=== PATIENT | male | born 1970 | race Hispanic/Latino ===

== ENCOUNTER 2017-10-20 19:25 | Emergency (ER) | payer BC ==
[2017-10-20 19:33] VITALS: BMI 34.7
[2017-10-20 19:47] LABS: HEMOGLOBIN 14.5 g/dL (14.0-18.0); MEAN CELL VOLUME 87.8 fl (80.0-105.0); MEAN CORPUSCULAR HEMOGLOBIN 29.4 pg (25.0-35.0); MEAN CORPUSCULAR HGB CONC 33.5 g/dl (31.0-37.0); MEAN PLATELET VOLUME 9.6 fl (7.0-11.0); RBC 4.93 10^6/uL (3.5-6.1); RED CELL DISTRIBUTION WIDTH 13.6 % (11.5-14.5); WHITE BLOOD COUNT 17.4 10^3/ul (4.5-11.0)
[2017-10-20 20:06] VITALS: RESP 18; TEMP 98.2; O2SAT 99
--- NOTE | 2017-10-20 20:06 | CT ---
EXAM: CT Head Without Intravenous Contrast CLINICAL HISTORY: 47 years old, male; Signs and symptoms; Dizziness; Additional info: Headache/syncope TECHNIQUE: Axial computed tomography images of the head/brain without intravenous contrast. All CT scans at this facility use one or more dose reduction techniques, viz.: automated exposure control; ma/kV adjustment per patient size (including targeted exams where dose is matched to indication; i.e. head); or iterative reconstruction technique. COMPARISON: No relevant prior studies available. FINDINGS: Brain: Extensive subarachnoid hemorrhage. Hemorrhage is visualized along sulci, along sylvian fissure and basal CSF cisterns. Due to extensive hemorrhage hemorrhage in region of [place], arterial imaging recommended to exclude aneurysm. No significant white matter disease. No edema. Ventricles: No hydrocephalus. Bones: Skull is intact. Soft tissues: Right frontal scalp hematoma. Sinuses: No acute sinusitis. Mastoid air cells: No mastoid effusion. IMPRESSION: Extensive subarachnoid hemorrhage. Hemorrhage is visualized along sulci, along sylvian fissure and basal CSF cisterns. Due to extensive hemorrhage hemorrhage in region of [place], arterial imaging recommended to exclude aneurysm.
[2017-10-20 20:07] LABS: ALB/GLOB RATIO 1.2 (1.1-1.8); ALBUMIN 4.2 g/dL (3.0-4.8); ALT/SGPT 68 U/L (7-56); AST/SGOT 60 U/L (17-59); BLOOD UREA NITROGEN 24 mg/dL (7-21); CALCIUM 9.3 mg/dL (8.4-10.5); GFR AFRICAN-AMERICAN > 60; GFR NON-AFRICAN AMERICAN > 60; LIPASE 80 U/L (23-300)
[2017-10-20 20:08] LABS: INR 1.23 (0.93-1.08); PARTIAL THROMBOPLASTIN TIME 23.6 Seconds (25.1-36.5); PROTHROMBIN TIME 14.1 SECONDS (9.4-12.5)
--- NOTE | 2017-10-20 20:08 | ED PDOC ---
Arrival/HPI - General Time Seen by Provider: 10/20/17 19:26 Historian: Patient - History of Present Illness Narrative History of Present Illness (Text): 10/20/17 20:08 A 47 year old female, with no significant past medical history, presents to the emergency department complaining of syncopal episode that occurred at home. Patient reports he was using his computer and suddenly experienced sharp head pain. Afterwards patient blacked out briefly. Patient states experiencing nausea and vomited a few times. Also experiencing slight headache. Denies of any neck pain, back pain, chest pain, shortness of breath, or any other complaints at this time. No PMD Past Medical History - Provider Review Nursing Documentation Reviewed: Yes Family/Social History - Physician Review Nursing Documentation Reviewed: Yes Family/Social History: No Known Family HX Allergies/Home Meds Allergies/Adverse Reactions: Allergies No Known Allergies Allergy (Unverified 10/20/17 19:38) Home Medications: Home Meds Medication Instructions Recorded Confirmed No Known Home Med 10/20/17 10/20/17 Review of Systems - Physician Review All systems were reviewed & negative as marked: Yes - Review of Systems Cardiovascular: Syncope Gastrointestinal: Nausea, Vomiting Musculoskeletal: Other (sharp head pain). absent: Back Pain, Neck Pain Neurological: Headache (slightly) Physical Exam Vital Signs Reviewed: Yes Vital Signs Temp Pulse Resp BP Pulse Ox 10/20/17 21:05 72 18 152/82 H 99 10/20/17 20:19 83 127/86 10/20/17 19:25 98.2 F 86 18 160/88 H 99 Temperature: Afebrile Blood Pressure: Hypertensive Pulse: Regular Respiratory Rate: Normal Appearance: Positive for: Well-Appearing Pain Distress: None Mental Status: Positive for: Alert and Oriented X 3 - Systems Exam Pupils: Present: PERRL Extroacular Muscles: Present: EOMI Conjunctiva: Present: Normal Mouth: Present: Moist Mucous Membranes Neck: Present: Normal Range of Motion Respiratory/Chest: Present: Clear to Auscultation, Good Air Exchange. No: Respiratory Distress, Accessory Muscle Use Cardiovascular: Present: Regular Rate and Rhythm, Normal S1, S2. No: Murmurs Abdomen: Present: Normal Bowel Sounds. No: Tenderness, Distention, Peritoneal Signs Back: Present: Normal Inspection Upper Extremity: Present: Normal Inspection. No: Cyanosis, Edema Lower Extremity: Present: Normal Inspection. No: Edema Neurological: Present: GCS=15, CN II-XII Intact, Speech Normal, Motor Func Grossly Intact, Normal Sensory Function, Normal Cerebellar Funct, Norm Deep Tendon Reflexes, Gait Normal, Memory Normal, Normal 2Pt Descrimination, Other ( no focal deficits) Skin: Present: Warm, Dry, Normal Color. No: Rashes Psychiatric: Present: Alert, Oriented x 3, Normal Insight, Normal Concentration Medical Decision Making ED Course and Treatment: 10/20/17 20:14 Impression: 47 year old male with syncopal episode. Physical exam is benign. Plan: -- EKG -- Nicardipine -- Zofran -- Labs -- Reassess and disposition Prior Visits: Notes and results from previous visits were reviewed. Patient was last seen in the emergency department on Progress Notes: 10/20/2017 20:[address] Hanson about patient presentation, clinical findings, and CT scan results. He stated he viewed scan results and states patient will need to be transferred to another facility for further intervention. He will arrange for transfer and call me back. 10/20/17 20:[address] Hanson, whom states patient will be [facility]. Patient is stable at this time. 10/20/17 20:38 Dr. Guzmán ED attending spoken with and Dr. Truk to be to accepting neurosurgeon. - Critical Care Critical Care Minutes: 30 minutes - Lab Interpretations Narrative Lab Interpretation (Text): CT Head shows: Brain: Extensive subarachnoid hemorrhage. Hemorrhage is visualized along sulci, along sylvian fissure and basal CSF cisterns. Due to extensive hemorrhage hemorrhage in region of [place], arterial imaging recommended to exclude aneurysm. No significant white matter disease. No edema. Ventricles: No hydrocephalus. Bones: Skull is intact. Soft tissues: Right frontal scalp hematoma. Sinuses: No acute sinusitis. Mastoid air cells: No mastoid effusion. IMPRESSION: Extensive subarachnoid hemorrhage. Hemorrhage is visualized along sulci, along sylvian fissure and basal CSF cisterns. Due to extensive hemorrhage hemorrhage in region of [place], arterial imaging recommended to exclude aneurysm. Lab Results: 10/20/17 19:35 10/20/17 19:35 Lab Results 10/20/17 19:35: WBC 17.4 H D, RBC 4.93, Hgb 14.5, Hct 43.3, MCV 87.8, MCH 29.4, MCHC 33.5, RDW 13.6, Plt Count 260, MPV 9.6 10/20/17 19:35: Sodium 141, Potassium 4.1, Chloride 101, Carbon Dioxide 26, Anion Gap 18, BUN 24 H, Creatinine 0.9, Est GFR ( Amer) > 60, Est GFR ( Non-Af Amer) > 60, Random Glucose 205 H, Calcium 9.3, Total Bilirubin 0.6, AST 60 H, ALT 68 H, Alkaline Phosphatase 74, Lactate Dehydrogenase 590, Total Creatine Kinase 1044 H, CK-MB (CK-2) 15.1 H, CK-MB (CK-2) % 1.4 L, Troponin I < 0.01, Total Protein 7.7, Albumin 4.2, Globulin 3.5, Albumin/Globulin Ratio 1.2, Lipase 80 10/20/17 19:35: PT 14.1 H, INR 1.23 H, APTT 23.6 L 10/20/17 19:29: POC Glucose (mg/dL) 158 H I have reviewed the lab results: Yes - RAD Interpretation Radiology Orders: 10/20/17 19:38 HEAD W/O CONTRAST [CT] Stat 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 Cutting 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 Operator: Radiologist - Medication Orders Current Medication Orders: Nicardipine HCl (Cardene Iv Premix) 20 mg in 200 mls @ 50 mls/hr IV .Q4H PRN; Protocol; 5 MG/HR PRN Reason: TITRATE PER MD ORDER Last Admin: 10/20/17 20:19 Dose: 50 mls/hr eMAR Start Stop Document 10/20/17 20:19 SHERRIE (Rec: 10/20/17 20:19 SHERRIE [id number]) Intravenous Solution Start Date 10/20/17 Start Time 20:19 DEC Pulse and Blood Pressure Document 10/20/17 20:19 SHERRIE (Rec: 10/20/17 20:19 SHERRIE [id number]) Pulse Pulse Rate (60-90 beats/min) 83 Blood Pressure Blood Pressure (100/60-150/90 mm Hg) 127/86 Discontinued Medications Acetaminophen (Tylenol 325mg Tab) 650 mg PO STAT STA Stop: 10/20/17 21:04 Last Admin: 10/20/17 21:48 Dose: Not Given Non-Admin Reason: NPO Morphine Sulfate (Morphine) 2 mg IVP STAT STA Stop: 10/20/17 21:27 Last Admin: 10/20/17 21:26 Dose: 2 mg MAR Pain Assessment Document 10/20/17 21:26 SHERRIE (Rec: 10/20/17 21:49 SHERRIE [id number]) Pain Reassessment Is this a pain reassessment? No IVP Administration Document 10/20/17 21:26 SHERRIE (Rec: 10/20/17 21:49 SHERRIE [id number]) Charges for Administration # of IVP Administrations 1 Ondansetron HCl (Zofran Inj) 4 mg IVP ONCE ONE Stop: 10/20/17 19:58 Last Admin: 10/20/17 20:02 Dose: 4 mg IVP Administration Document 10/20/17 20:02 SHERRIE (Rec: 10/20/17 20:03 SHERRIE [id number]) Charges for Administration # of IVP Administrations 1 Ondansetron HCl (Zofran Inj) 4 mg IVP ONCE ONE Stop: 10/20/17 21:27 Last Admin: 10/20/17 21:26 Dose: 4 mg IVP Administration Document 10/20/17 21:26 SHERRIE (Rec: 10/20/17 21:50 SHERRIE [id number]) Charges for Administration # of IVP Administrations 1 - Scribe Statement The provider has reviewed the documentation as recorded by the Rasheeda Varela Provider Scribe Attestation: All medical record entries made by the Scribstevenson were at my direction and personally dictated by me. I have reviewed the chart and agree that the record accurately reflects my personal performance of the history, physical exam, medical decision making, and the department course for this patient. I have also personally directed, reviewed, and agree with the discharge instructions and disposition. Disposition/Present on Arrival - Present on Arrival Any Indicators Present on Arrival: No History of DVT/PE: No History of Uncontrolled Diabetes: No Urinary Catheter: No History of Decub. Ulcer: No History Surgical Site Infection Following: None - Disposition Have Diagnosis and Disposition been Completed?: Yes Diagnosis: Subarachnoid hemorrhage Disposition: Transfer [facility] Disposition Time: 20:33 Patient Problems: Current Active Problems Problem Status Onset Subarachnoid hemorrhage Acute Condition: STABLE Referrals: [facility], [Primary Care Provider] - Follow up with primary
[2017-10-20 20:09] LABS: TROPONIN I < 0.01 ng/mL
[2017-10-20] MEDS ORDERED: Nicardipine 20 MG/200 ML 20 MG/200 ML BAG IV PRN (20:09)
[2017-10-20 20:15] LABS: CK MB% 1.4 % (2.5-3.0); CK-MB 15.1 ng/mL (0.0-3.6)
[2017-10-20 21:06] VITALS: BP 152/82; PULSE 72
[2017-10-20] MEDS ORDERED: Morphine 2 mg/ml ISec IVP STA (21:26)
== END 2017-10-20 21:50 | disposition short-term general hospital (02) ==
LOC: ED 19:25
DX: I60.9 Nontraumatic subarachnoid hemorrhage, unspecified (principal)
CPT/HCPCS: 70450; 80053; 82550; 82553; 82948; 83615; 83690; 84484; 85027; 85610; 85730; 96374; 96375; 96376; 99284; J2270; J2405

== ENCOUNTER 2018-12-03 17:34 | Inpatient (IN) | payer MEDICAID ==
[2018-12-03 17:48] VITALS: BMI 28.2
[2018-12-03] MEDS ORDERED: Sodium Chloride 0.9% 500 ML IV STA (17:59)
--- NOTE | 2018-12-03 18:04 | ED PDOC ---
Arrival/HPI - General Chief Complaint: Seizure Time Seen by Provider: 12/03/18 17:43 Historian: Patient, Family - History of Present Illness Narrative History of Present Illness (Text): 12/03/18 18:02 48 year old male, with past medical history of subarachnoid hemorrhage, and seizure on keppra, presents to the Emergency department accompanied by family for medical evaluation s/p seizure episode at home prior to arrival. As per , patient was on the bed when witnessed tonic clonic activity for a few minutes without any fall, head injury or urinary incontinence. Patient expressed post-ictal state following the episode and was subsequently brought to the ED for medical evaluation. Upon arrival. patient denies any medical complaints and is at his baseline as per family. Patient denies any fever, chills, nausea, vom iting, abdominal pain, chest pain, shortness of breath, headache, dizziness, vision changes, neck pain or any other complaints. 12/03/18 21:34 Time/Duration: Prior to Arrival Symptom Onset: Gradual Symptom Course: Improving Activities at Onset: Light Context: Home Past Medical History - Provider Review Nursing Documentation Reviewed: Yes - Neurological Hx Neurological Disorder: Yes Hx Seizures: Yes Other/Comment: cerebral aneurym 2018. - HEENT Hx HEENT Disorder: No - Renal Hx Renal Disorder: No - Endocrine/Metabolic Hx Endocrine Disorders: No - Hematological/Oncological Hx Blood Disorders: No - Integumentary Hx Dermatological Disorder: No - Musculoskeletal/Rheumatological Hx Musculoskeletal Disorders: No - Gastrointestinal Hx Gastrointestinal Disorders: Yes Other/Comment: GI obstruction - Genitourinary/Gynecological Hx Genitourinary Disorders: No - Psychiatric Hx Psychophysiologic Disorder: No Hx Substance Use: No - Anesthesia Hx Anesthesia: Yes Hx Anesthesia Reactions: No Hx Malignant Hyperthermia: No Family/Social History - Physician Review Nursing Documentation Reviewed: Yes Family/Social History: No Known Family HX Smoking Status: n Hx Alcohol Use: No Hx Substance Use: No Allergies/Home Meds Allergies/Adverse Reactions: Allergies No Known Allergies Allergy (Unverified 10/20/17 19:38) Home Medications: Home Meds Medication Instructions Recorded Confirmed Levetiracetam [Keppra] 750 mg PO BID 12/03/18 12/03/18 RX: Amantadine [Symmetrel] 5 ml PO DAILY 12/03/18 12/03/18 RX: Aspirin [Aspirin EC] 325 mg PO DAILY 12/03/18 12/03/18 RX: Famotidine [Pepcid] 20 mg PO DAILY 12/03/18 12/03/18 RX: Lisinopril [Zestril] 2.5 mg PO DAILY 12/03/18 12/03/18 RX: Propranolol [Inderal] 20 mg PO DAILY 12/03/18 12/03/18 RX: amLODIPine [Norvasc] 5 mg PO DAILY 12/03/18 12/03/18 Review of Systems - Physician Review All systems were reviewed & negative as marked: Yes - Review of Systems Constitutional: absent: Fevers Respiratory: absent: SOB, Cough Cardiovascular: absent: Chest Pain Gastrointestinal: absent: Abdominal Pain, Diarrhea, Nausea, Vomiting Genitourinary Male: absent: Dysuria, Hematuria Musculoskeletal: absent: Back Pain, Neck Pain Neurological: Seizure. absent: Headache, Dizziness Psychiatric: absent: Anxiety Physical Exam Vital Signs Reviewed: Yes Vital Signs Temp Pulse Resp BP Pulse Ox 12/03/18 17:53 98.4 F 108 H 18 126/87 95 Temperature: Afebrile Blood Pressure: Normal Pulse: Tachycardic Respiratory Rate: Normal Appearance: Positive for: Well-Appearing, Non-Toxic, Comfortable Pain Distress: None Mental Status: Positive for: other (Alert) Finger Stick Blood Glucose: 99 - Systems Exam Head: Present: Atraumatic, Normocephalic Pupils: Present: PERRL Extroacular Muscles: Present: EOMI Conjunctiva: Present: Normal Mouth: Present: Moist Mucous Membranes Cardiovascular: Present: Regular Rate and Rhythm, Normal S1, S2. No: Murmurs Abdomen: No: Tenderness, Distention, Peritoneal Signs Skin: Present: Warm, Dry, Normal Color. No: Rashes Psychiatric: Present: Alert Medical Decision Making ED Course and Treatment: 12/03/18 18:12 Impression: 48 year old male presents to the ED for evaluation s/p seizure. during ed arrival pt had another seizure ativan given Differential Diagnosis included but are not limited to: Seizure Plan: -- CT of head -- EKG -- Labs -- Ativan -- IV Fluids -- Urinalysis -- Reassess and disposition Prior Visits: Notes and results from previous visits were reviewed. Progress Notes: 12/03/18 18:00 Patient experienced seizure episode in the Emergency department. Ativan was given. 02/18/19 18:16 EKG reviewed, shows sinus tachycardia at 140 bpm. 12/03/18 20:54 case discussed with pt neurosuregon at [facility], dr Canela, advises to load keppra no inidcation for transfer at this time. discussed with dr maldonado agrees with 1000mg keppra. - RAD Interpretation Radiology Orders: 12/03/18 17:58 HEAD W/O CONTRAST [CT] Stat - EKG Interpretation Interpreted by ED Physician: Yes Type: 12 lead EKG - Medication Orders Current Medication Orders: Sodium Chloride (Sodium Chloride 0.9%) 500 mls @ 999 mls/hr IV .Q31M STA Stop: 12/03/18 18:29 Discontinued Medications Lorazepam (Ativan) 2 mg IVP ONCE ONE; Protocol Stop: 12/03/18 18:01 - Scribe Statement The provider has reviewed the documentation as recorded by the Scribe Arsen Garcia. All medical record entries made by the Scribe were at my direction and personally dictated by me. I have reviewed the chart and agree that the record accurately reflects my personal performance of the history, physical exam, medical decision making, and the department course for this patient. I have also personally directed, reviewed, and agree with the discharge instructions and disposition. Disposition/Present on Arrival - Present on Arrival Any Indicators Present on Arrival: No History of DVT/PE: No History of Uncontrolled Diabetes: No Urinary Catheter: No History of Decub. Ulcer: No History Surgical Site Infection Following: None - Disposition Have Diagnosis and Disposition been Completed?: Yes Diagnosis: Seizure Disposition: HOSPITALIZED Disposition Time: 18:00 Condition: FAIR
[2018-12-03 18:13] LABS: BASO # 0.02 K/mm3 (0.0-2.0); BASO % 0.2 % (0.0-3.0); EOS # 0.1 (0.0-0.7); HEMOGLOBIN 16.4 g/dL (14.0-18.0); LYMPH # 4.8 (1.2-3.4); LYMPH % 37.4 % (22.0-35.0); MEAN CELL VOLUME 86.5 fl (80.0-105.0); MEAN CORPUSCULAR HEMOGLOBIN 29.2 pg (25.0-35.0); MEAN CORPUSCULAR HGB CONC 33.7 g/dl (31.0-37.0); MEAN PLATELET VOLUME 9.9 fl (7.0-11.0); MONO # 1.3 (0.1-0.6); MONO % 9.9 % (1.0-6.0); RBC 5.62 10^6/uL (3.5-6.1); RED CELL DISTRIBUTION WIDTH 13.2 % (11.5-14.5); WHITE BLOOD COUNT 12.8 10^3/uL (4.5-11.0)
[2018-12-03 18:33] LABS: ALB/GLOB RATIO 1.2 (1.1-1.8); ALBUMIN 4.8 g/dL (3.0-4.8); ALT/SGPT 35 U/L (7-56); AST/SGOT 35 U/L (17-59); BLOOD UREA NITROGEN 12 mg/dL (7-21); CALCIUM 10.2 mg/dL (8.4-10.5); GFR NON-AFRICAN AMERICAN > 60
[2018-12-03 18:34] LABS: INR 1.25; PARTIAL THROMBOPLASTIN TIME 30.6 Seconds (26.9-38.3); PROTHROMBIN TIME 13.9 SECONDS (9.4-12.5)
[2018-12-03] MEDS ORDERED: levETIRAcetam 1,000 MG in Sodium Chloride 0.9% 100 ML IVPB ONE (20:21)
[2018-12-03] MEDS ORDERED: levETIRAcetam 1000mg/100ml NS 100 ML IV ONE (20:30)
[2018-12-03] MEDS: levETIRAcetam 1000mg/100ml NS 100 ML IVPB SCH (22:26)
--- NOTE | 2018-12-03 23:20 | CARD ---
APPROVED REPORT Date of service: 12/03/2018 EKG Measurement Heart [id number] [id number] <Conclusion> Sinus tachycardia Nonspecific ST abnormality Abnormal ECG
--- NOTE | 2018-12-04 00:18 | CP.PCM.HP ---
<Donn Sears L - Last Filed: 12/04/18 00:50> History of Present Illness - History of Present Illness History of Present Illness: Resident History & Physical for Hospitalist Service Patient is a 48 year old male with past medical history of subarachnoid hemorrhage, seizures, HTN, CVA, vocal polyps presenting with chief complaint of seizures that began today late afternoon. History was obtained primarily from patients and mother at bedside as patient has difficulty speaking due to vocal polyps. Patient was resting in his wheel chair at home when he was noted to have a 5 minute episode of tremors in his lower extremities which progressed to tonic clonic activity, patients eyes rolling back, and tongue biting. After arrival to ED, patient was noted to have another seizure episode. Ativan 2 mg x2 and Keppra 1 gm were given. Patients neurosurgeons Dr. Turk was contacted who recommended patient be monitored at [facility]. As per family, patients current mentation is at baseline. Patient had seizures once before a year prior when he was admitted to [facility] ICU for subarachnoid hemorrhage s/p ventriculostomy. He was also hospitalized in August 2018 for colitis. Denies trauma, headache, dizziness, fevers, chills, chest pain, shortness of breath, abdominal pain, diarrhea, dysuria. PMH: subarachnoid hemorrhage, seizures, HTN, CVA, vocal polyps PSH: ventriculostomy SHx: denies alcohol, tobacco, illicit drug use Allergies: NKDA PMD: Dr. Malik Wells () [phone] Andreea (mother) [phone] Present on Admission - Present on Admission Any Indicators Present on Admission: No Review of Systems - Review of Systems All systems: reviewed and no additional remarkable complaints except (as stated in HPI) Past Patient History - Past Social History Smoking Status: n - NEUROLOGICAL Hx Neurological Disorder: Yes Hx Seizures: Yes Other/Comment: cerebral aneurym 2018. - HEENT Hx HEENT Problems: No - RENAL Hx Chronic Kidney Disease: No - ENDOCRINE/METABOLIC Hx Endocrine Disorders: No - HEMATOLOGICAL/ONCOLOGICAL Hx Blood Disorders: No - INTEGUMENTARY Hx Dermatological Problems: No - MUSCULOSKELETAL/RHEUMATOLOGICAL Hx Musculoskeletal Disorders: No - GASTROINTESTINAL Hx Gastrointestinal Disorders: Yes Other/Comment: GI obstruction - GENITOURINARY/GYNECOLOGICAL Hx Genitourinary Disorders: No - PSYCHIATRIC Hx Psychophysiologic Disorder: No Hx Substance Use: No - SURGICAL HISTORY Hx Surgeries: Yes - ANESTHESIA Hx Anesthesia: Yes Hx Anesthesia Reactions: No Hx Malignant Hyperthermia: No Meds Allergies/Adverse Reactions: Allergies Allergy/AdvReac Type Severity Reaction Status Date / Time No Known Allergies Allergy Unverified 10/20/17 19:38 Physical Exam - Constitutional Appears: Non-toxic, No Acute Distress - Head Exam Head Exam: ATRAUMATIC, NORMOCEPHALIC - Eye Exam Eye Exam: EOMI, Normal appearance, PERRL - ENT Exam ENT Exam: Mucous Membranes Moist - Respiratory Exam Respiratory Exam: Clear to Auscultation Bilateral, NORMAL BREATHING PATTERN. absent: Rales, Rhonchi, Wheezes - Cardiovascular Exam Cardiovascular Exam: Tachycardia, +S1, +S2. absent: Systolic Murmur - GI/Abdominal Exam GI & Abdominal Exam: Soft. absent: Distended, Firm, Guarding, Rebound, Rigid, Tenderness - Extremities Exam Extremities exam: Positive for: normal capillary refill, pedal pulses present. Negative for: calf tenderness, pedal edema - Neurological Exam Neurological exam: Alert, CN II-XII Intact, Oriented x3 Additional comments: right sided contractures - Skin Skin Exam: Dry, Intact, Warm Results - Vital Signs Recent Vital Signs: Last Vital Signs Temp 98.4 F 12/03/18 17:53 Pulse 98 H 12/03/18 23:49 Resp 18 12/03/18 23:49 BP 110/77 12/03/18 23:49 Pulse Ox 99 12/03/18 23:49 - Labs Result Diagrams: 12/03/18 18:05 12/03/18 18:05 Labs: Laboratory Results - last 24 hr 12/03/18 12/03/18 12/03/18 18:05 18:05 18:05 WBC 12.8 H D RBC 5.62 Hgb 16.4 Hct 48.6 MCV 86.5 MCH 29.2 MCHC 33.7 RDW 13.2 Plt Count 277 MPV 9.9 Neut % (Auto) 51.5 Lymph % (Auto) 37.4 H Bertie % (Auto) 9.9 H Eos % (Auto) 1.0 L Baso % (Auto) 0.2 Lymph # (Auto) 4.8 H Bertie # (Auto) 1.3 H Eos # (Auto) 0.1 Baso # (Auto) 0.02 Absolute Neuts (auto) 6.58 H PT 13.9 H INR 1.25 APTT 30.6 Sodium 138 Potassium 5.0 Chloride 99 Carbon Dioxide 22 Anion Gap 22 H BUN 12 Creatinine 0.8 Est GFR ( Amer) > 60 Est GFR (Non-Af Amer) > 60 Random Glucose 96 Calcium 10.2 Magnesium 2.1 Total Bilirubin 0.7 AST 35 ALT 35 Alkaline Phosphatase 106 Total Protein 8.8 H Albumin 4.8 Globulin 4.0 Albumin/Globulin Ratio 1.2 Assessment & Plan - Assessment and Plan (Free Text) Assessment: Patient is a 48 year old male with past medical history of subarachnoid hemorrhage s/p ventriculostomy, seizures, HTN, CVA, vocal polyps admitted for workup and management of seizures. Plan: Seizures - CT head shows no acute pathology - EKG shows sinus tachycardia - Neurology consulted. Appreciate recs. - NPO - Ativan 2 mg IV Q2H PRN - Keppra 1 grma Q12H - Aspiration, seizure, fall precautions - Neurochecks Q4H - PT/OT eval - UDS, CK - blood cultures HTN - continue home amlodipine, lisinopril PPX - SCDs, Protonix Case discussed with Dr. Wyatt Sears PGY-1 - Date & Time Date: 12/04/18 Time: 00:29 <Romel Schneider - Last Filed: 12/04/18 19:26> Results - Vital Signs Recent Vital Signs: Last Vital Signs Temp 98.6 F 12/04/18 18:00 Pulse 84 12/04/18 18:00 Resp 18 12/04/18 18:00 BP 110/76 12/04/18 18:00 Pulse Ox 100 12/04/18 12:51 - Labs Result Diagrams: 12/04/18 07:30 12/04/18 07:30 Labs: Laboratory Results - last 24 hr 12/03/18 12/04/18 12/04/18 18:05 00:00 00:00 WBC RBC Hgb Hct MCV MCH MCHC RDW Plt Count MPV Neut % (Auto) Lymph % (Auto) Bertie % (Auto) Eos % (Auto) Baso % (Auto) Lymph # (Auto) Bertie # (Auto) Eos # (Auto) Baso # (Auto) Absolute Neuts (auto) Sodium Potassium Chloride Carbon Dioxide Anion Gap BUN Creatinine Est GFR ( Amer) Est GFR (Non-Af Amer) Random Glucose Calcium Phosphorus Magnesium Total Bilirubin AST ALT Alkaline Phosphatase Total Creatine Kinase 100 Total Protein Albumin Globulin Albumin/Globulin Ratio Procalcitonin Urine Color Yellow Urine Appearance Clear Urine pH 8.0 Ur Specific [employer] 1.020 Urine Protein Negative Urine Glucose (UA) Negative Urine Ketones Negative Urine Blood Large H Urine Nitrate Negative Urine Bilirubin Negative Urine Urobilinogen 0.2 Ur Leukocyte Esterase Negative Urine RBC 10 - 15 H Urine WBC 0 - 2 Ur Epithelial Cells 0 - 2 Urine Bacteria Rare Urine Opiates Screen Negative Urine Methadone Screen Negative Ur Barbiturates Screen Negative Ur Phencyclidine Scrn Negative Ur Amphetamines Screen Negative U Benzodiazepines Scrn Negative U Oth Cocaine Metabols Negative U Cannabinoids Screen Negative 12/04/18 12/04/18 12/04/18 06:14 07:30 07:30 WBC 12.0 H RBC 5.12 Hgb 14.7 Hct 44.0 MCV 85.9 MCH 28.7 MCHC 33.4 RDW 13.3 Plt Count 243 MPV 9.5 Neut % (Auto) 69.7 H Lymph % (Auto) 17.8 L Bertie % (Auto) 11.7 H Eos % (Auto) 0.7 L Baso % (Auto) 0.1 Lymph # (Auto) 2.1 Bertie # (Auto) 1.4 H Eos # (Auto) 0.1 Baso # (Auto) 0.01 Absolute Neuts (auto) 8.34 H Sodium 135 Potassium 4.4 Chloride 97 L Carbon Dioxide 30 Anion Gap 13 BUN 11 Creatinine 0.9 Est GFR ( Amer) > 60 Est GFR (Non-Af Amer) > 60 Random Glucose 94 Calcium 9.6 Phosphorus 3.8 Magnesium 2.0 Total Bilirubin 0.8 AST 27 ALT 34 Alkaline Phosphatase 97 Total Creatine Kinase Total Protein 7.8 Albumin 4.3 Globulin 3.5 Albumin/Globulin Ratio 1.2 Procalcitonin < 0.05 L Urine Color Urine Appearance Urine pH Ur Specific [employer] Urine Protein Urine Glucose (UA) Urine Ketones Urine Blood Urine Nitrate Urine Bilirubin Urine Urobilinogen Ur Leukocyte Esterase Urine RBC Urine WBC Ur Epithelial Cells Urine Bacteria Urine Opiates Screen Urine Methadone Screen Ur Barbiturates Screen Ur Phencyclidine Scrn Ur Amphetamines Screen U Benzodiazepines Scrn U Oth Cocaine Metabols U Cannabinoids Screen Attending/Attestation - Attestation I have personally seen and examined this patient.: Yes I have fully participated in the care of the patient.: Yes I have reviewed all pertinent clinical information: Yes Notes (Text): 12/04/18 19:25 seen, examined and discussed with resident. A&P formulated with resident. 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
[2018-12-04 00:45] LABS: URINE BILIRUBIN NEGATIVE (NEGATIVE); URINE BLOOD LARGE (NEGATIVE); URINE GLUCOSE (UA) NEGATIVE (NEGATIVE); URINE LEUKOCYTE ESTERASE NEGATIVE Leu/uL (NEGATIVE); URINE PROTEIN NEGATIVE mg/dL (<30 mg/dL); URINE UROBILINOGEN 0.2 E.U./dL (<1 E.U./dL)
[2018-12-04 00:50] LABS: URINE APPEARANCE CLEAR (CLEAR); URINE COLOR YELLOW (YELLOW)
[2018-12-04 01:02] LABS: URINE BACTERIA RARE /hpf; URINE EPITHELIAL CELLS 0 - 2 /hpf (0-5); URINE WBC 0 - 2 /hpf (0-6)
[2018-12-04 02:13] LABS: BARBITURATES, UR NEGATIVE (NEGATIVE); BENZODIAZEPINES, UR NEGATIVE (NEGATIVE); OPIATES, UR NEGATIVE (NEGATIVE); PHENCYCLIDINE, UR NEGATIVE (NEGATIVE)
[2018-12-04 08:04] LABS: BASO # 0.01 K/mm3 (0.0-2.0); BASO % 0.1 % (0.0-3.0); EOS # 0.1 (0.0-0.7); EOS % 0.7 % (1.5-5.0); HEMOGLOBIN 14.7 g/dL (14.0-18.0); LYMPH # 2.1 (1.2-3.4); LYMPH % 17.8 % (22.0-35.0); MEAN CELL VOLUME 85.9 fl (80.0-105.0); MEAN CORPUSCULAR HEMOGLOBIN 28.7 pg (25.0-35.0); MEAN CORPUSCULAR HGB CONC 33.4 g/dl (31.0-37.0); MEAN PLATELET VOLUME 9.5 fl (7.0-11.0); MONO # 1.4 (0.1-0.6); MONO % 11.7 % (1.0-6.0); RBC 5.12 10^6/uL (3.5-6.1); RED CELL DISTRIBUTION WIDTH 13.3 % (11.5-14.5)
[2018-12-04 08:19] LABS: ALB/GLOB RATIO 1.2 (1.1-1.8); ALBUMIN 4.3 g/dL (3.0-4.8); ALT/SGPT 34 U/L (7-56); AST/SGOT 27 U/L (17-59); BLOOD UREA NITROGEN 11 mg/dL (7-21); CALCIUM 9.6 mg/dL (8.4-10.5); GFR NON-AFRICAN AMERICAN > 60
--- NOTE | 2018-12-04 08:47 | CT ---
Date of service: 12/03/2018 PROCEDURE: CT HEAD WITHOUT CONTRAST. HISTORY: seizure h/o of sah COMPARISON: 10/20/2017 TECHNIQUE: Axial computed tomography images were obtained through the head/brain without intravenous contrast. Radiation dose: Total exam DLP = 1026.18 mGy-cm. This CT exam was performed using one or more of the following dose reduction techniques: Automated exposure control, adjustment of the mA and/or kV according to patient size, and/or use of iterative reconstruction technique. FINDINGS: HEMORRHAGE: No intracranial hemorrhage. BRAIN: There has been a left frontal craniotomy with aneurysm clips in the suprasellar cistern. There is encephalomalacia in the frontal lobes bilaterally and the left temporal lobe. VENTRICLES: There is a shunt catheter traversing the frontal horns. There is no evidence of hydrocephalus CALVARIUM: Unremarkable. PARANASAL SINUSES: Unremarkable as visualized. No significant inflammatory changes. MASTOID AIR CELLS: Unremarkable as visualized. No inflammatory changes. OTHER FINDINGS: The report concurs with the preliminary [facility] report IMPRESSION: No acute intracranial abnormalities. There has been a left frontal craniotomy with aneurysm clips in the suprasellar cistern. There is encephalomalacia in the frontal lobes bilaterally and the left temporal lobe.
[2018-12-04] MEDS: Aspirin 325 mg EC Tablets PO SCH (09:13)
[2018-12-04] MEDS: levETIRAcetam 1000mg/100ml NS 100 ML IVPB SCH ×2 (09:14→22:15)
--- NOTE | 2018-12-04 09:29 | RAD ---
Date of service: 12/03/2018 HISTORY: seizure COMPARISON: 07/23/2018 FINDINGS: LUNGS: No definite infiltrate. PLEURA: Moderate right pleural effusion. No left pleural effusion. No pneumothorax. Examination limited due to poor inspiratory effort and apical lordotic positioning. CARDIOVASCULAR: No aortic atherosclerotic calcification present. Normal cardiac size. No pulmonary vascular congestion. OSSEOUS STRUCTURES: No significant abnormalities. VISUALIZED UPPER ABDOMEN: Normal. OTHER FINDINGS: None. IMPRESSION: Moderate right pleural effusion. Limited examination.
--- NOTE | 2018-12-04 09:30 | RAD ---
Date of service: 12/04/2018 HISTORY: r/o PNA COMPARISON: 12/03/2018 FINDINGS: LUNGS: No active pulmonary disease. PLEURA: Possible small right pleural effusion. No left pleural effusion. No pneumothorax. CARDIOVASCULAR: No aortic atherosclerotic calcification present. Normal cardiac size. No pulmonary vascular congestion. OSSEOUS STRUCTURES: No significant abnormalities. VISUALIZED UPPER ABDOMEN: Normal. OTHER FINDINGS: None. IMPRESSION: Small right pleural effusion. Otherwise unremarkable examination.
[2018-12-04] MEDS ORDERED: AMANTADINE PO SCH (10:00)
[2018-12-04] MEDS ORDERED: Piperacillin/Tazobact 3.375 gm 100 ML IVPB SCH (10:00)
[2018-12-04] MEDS ORDERED: Dextrose 5%/0.9% NS 1,000 ML IV SCH (10:00)
[2018-12-04] MEDS ORDERED: Valproate 1,000 MG in Sodium Chloride 0.9% 100 ML IVPB ONE (14:11)
[2018-12-04] MEDS ORDERED: Influenza Vaccine 60 mcg/0.5 mL SYR (4YR UP) IM ONE (18:41)
[2018-12-04] MEDS ORDERED: Pneumococcal 23-Valent Vaccine IM ONE (18:41)
--- NOTE | 2018-12-04 23:57 | CP.PCM.CON ---
History of Present Illness - History of Present Illness History of Present Illness: Neurology consult called by Dr. Toth, ER physician. 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 Marrero, [employer] shunt in place, presents with new onset seizure. Past Patient History - Past Social History Smoking Status: Never Smoked - CARDIAC Hx Cardiac Disorders: Yes Hx Hypertension: Yes Other/Comment: ivc filter put in in [facility] for prevention of blood clots in 2017 due to prolonged bedrest, pt unable to ambulate post cva in 10/2017. 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 brain shunt placement 1 month post cva, pt on vent post cva in icu then h ad insertion of trach, pt was in an induced coma after 2nd stomach sx surgeon made a flap and pt had to be in a coma it to heal. - HEENT Hx HEENT Problems: Yes (left sclera bloodshot) Other/Comment: speaks in a whisper due to vocal cord nodule may have been caused by vent was seen by an ent - RENAL Hx Chronic Kidney Disease: No - ENDOCRINE/METABOLIC Hx Endocrine Disorders: No - HEMATOLOGICAL/ONCOLOGICAL Hx Blood Disorders: No - INTEGUMENTARY Hx Dermatological Problems: Yes (small scratch under r eye) Other/Comment: healed abd surgical scar, and healed sacral decubiti, indented scar to left upper scalp - MUSCULOSKELETAL/RHEUMATOLOGICAL Hx Musculoskeletal Disorders: Yes Hx Falls: No Hx Unsteady Gait: Yes (oob to w/ch only) Other/Comment: cva 10/2017 tx at [facility], d/c 01/2018, went to [facility] d/c 03/2018, the to [facility] d/[facility] 05/15/2018, then home with a allergist immunologist mon - fri 8 hrs a day and goes to outpatient pt op speech therapy at [facility] in [place] - GASTROINTESTINAL Hx Gastrointestinal Disorders: Yes Hx Gastroesophageal Reflux: Yes Other/Comment: GI obstruction, dx with colitis in [facility] 08/2018, and small bowel syndrome 01/2018 in [facility] 2 surgeries - GENITOURINARY/GYNECOLOGICAL Hx Genitourinary Disorders: Yes Hx Incontinence: Yes (was incontinent today) Other/Comment: straight cath for urine specimen yesterday - PSYCHIATRIC Hx Psychophysiologic Disorder: No Hx Substance Use: No - SURGICAL HISTORY Hx Surgeries: Yes Hx Appendectomy: Yes Other/Comment: small bowel syndroms 2 surgeries, peg tube in and out, shunt to brain post cva, trach post mechanical vent, ivc filter for blood clot prevention due to prolonged bedrest in [place] - ANESTHESIA Hx Anesthesia: Yes Hx Anesthesia Reactions: No Hx Malignant Hyperthermia: No Meds Allergies/Adverse Reactions: Allergies Allergy/AdvReac Type Severity Reaction Status Date / Time No Known Allergies Allergy Unverified 10/20/17 19:38 - Medications Medications: Current Medications Amlodipine Besylate (Norvasc) 5 mg PO DAILY [facility] Last Admin: 12/04/18 09:12 Dose: 5 mg Aspirin (Ecotrin) 325 mg PO DAILY [facility] Last Admin: 12/04/18 09:13 Dose: 325 mg Levetiracetam (Keppra 1000mg/100ml Ns) 100 mls @ 200 mls/hr IVPB Q12 [facility] Last Admin: 12/04/18 22:15 Dose: 200 mls/hr Dextrose/Sodium Chloride (Dextrose 5%/0.9% Ns 1000 Ml) 1,000 mls @ 70 mls/hr IV .[id number] [facility] Stop: 12/05/18 00:17 Last Admin: 12/04/18 12:03 Dose: 70 mls/hr Valproate Sodium 500 mg/ (Sodium Chloride) 105 mls @ 100 mls/hr IVPB Q12H [facility] Lisinopril (Zestril) 2.5 mg PO DAILY [facility] Last Admin: 12/04/18 09:39 Dose: 2.5 mg Lorazepam (Ativan) 2 mg IVP Q2H PRN; Protocol PRN Reason: Seizure activity Non-Formulary Medication (Amantadine [Symmetrel]) 5 ml PO DAILY [facility] Pantoprazole Sodium (Protonix Ec Tab) 40 mg PO ACB [facility] Results - Vital Signs Recent Vital Signs: Last Vital Signs Temp 98.6 F 12/04/18 18:00 Pulse 85 12/04/18 22:00 Resp 18 12/04/18 18:00 BP 110/76 12/04/18 18:00 Pulse Ox 100 12/04/18 12:51 - Labs Result Diagrams: 12/04/18 07:30 12/04/18 07:30 Labs: Laboratory Results - last 24 hr 12/03/18 12/04/18 12/04/18 18:05 00:00 00:00 WBC RBC Hgb Hct MCV MCH MCHC RDW Plt Count MPV Neut % (Auto) Lymph % (Auto) [place] % (Auto) Eos % (Auto) Baso % (Auto) Lymph # (Auto) [place] # (Auto) Eos # (Auto) Baso # (Auto) Absolute Neuts (auto) Sodium Potassium Chloride Carbon Dioxide Anion Gap BUN Creatinine Est GFR ( Amer) Est GFR (Non-Af Amer) Random Glucose Calcium Phosphorus Magnesium Total Bilirubin AST ALT Alkaline Phosphatase Total Creatine Kinase 100 Total Protein Albumin Globulin Albumin/Globulin Ratio Procalcitonin Urine Color Yellow Urine Appearance Clear Urine pH 8.0 Ur Specific [place] 1.020 Urine Protein Negative Urine Glucose (UA) Negative Urine Ketones Negative Urine Blood Large H Urine Nitrate Negative Urine Bilirubin Negative Urine Urobilinogen 0.2 Ur Leukocyte Esterase Negative Urine RBC 10 - 15 H Urine WBC 0 - 2 Ur Epithelial Cells 0 - 2 Urine Bacteria Rare Urine Opiates Screen Negative Urine Methadone Screen Negative Ur Barbiturates Screen Negative Ur Phencyclidine Scrn Negative Ur Amphetamines Screen Negative U Benzodiazepines Scrn Negative U Oth Cocaine Metabols Negative U Cannabinoids Screen Negative 12/04/18 12/04/18 12/04/18 06:14 07:30 07:30 WBC 12.0 H RBC 5.12 Hgb 14.7 Hct 44.0 MCV 85.9 MCH 28.7 MCHC 33.4 RDW 13.3 Plt Count 243 MPV 9.5 Neut % (Auto) 69.7 H Lymph % (Auto) 17.8 L [place] % (Auto) 11.7 H Eos % (Auto) 0.7 L Baso % (Auto) 0.1 Lymph # (Auto) 2.1 [place] # (Auto) 1.4 H Eos # (Auto) 0.1 Baso # (Auto) 0.01 Absolute Neuts (auto) 8.34 H Sodium 135 Potassium 4.4 Chloride 97 L Carbon Dioxide 30 Anion Gap 13 BUN 11 Creatinine 0.9 Est GFR ( Amer) > 60 Est GFR (Non-Af Amer) > 60 Random Glucose 94 Calcium 9.6 Phosphorus 3.8 Magnesium 2.0 Total Bilirubin 0.8 AST 27 ALT 34 Alkaline Phosphatase 97 Total Creatine Kinase Total Protein 7.8 Albumin 4.3 Globulin 3.5 Albumin/Globulin Ratio 1.2 Procalcitonin < 0.05 L Urine Color Urine Appearance Urine pH Ur Specific [place] Urine Protein Urine Glucose (UA) Urine Ketones Urine Blood Urine Nitrate Urine Bilirubin Urine Urobilinogen Ur Leukocyte Esterase Urine RBC Urine WBC Ur Epithelial Cells Urine Bacteria Urine Opiates Screen Urine Methadone Screen Ur Barbiturates Screen Ur Phencyclidine Scrn Ur Amphetamines Screen U Benzodiazepines Scrn U Oth Cocaine Metabols U Cannabinoids Screen Assessment & Plan - Assessment and Plan (Free Text) Assessment: A/P: 1. Shunt series 2. Contineu on keppra and depakote at 1000 mg IV depakote now and [address] Victor already contacted about pateint 4. May be d'cd am if stable.
[2018-12-05] MEDS: Valproate 500 MG in Sodium Chloride 0.9% 100 ML IVPB SCH ×2 (05:15→17:30)
[2018-12-05 06:29] LABS: BASO # 0.02 K/mm3 (0.0-2.0); BASO % 0.2 % (0.0-3.0); EOS # 0.2 (0.0-0.7); HEMOGLOBIN 13.9 g/dL (14.0-18.0); LYMPH # 2.2 (1.2-3.4); LYMPH % 26.8 % (22.0-35.0); MEAN CELL VOLUME 86.3 fl (80.0-105.0); MEAN CORPUSCULAR HEMOGLOBIN 28.4 pg (25.0-35.0); MEAN CORPUSCULAR HGB CONC 32.9 g/dl (31.0-37.0); MEAN PLATELET VOLUME 9.9 fl (7.0-11.0); MONO % 11.6 % (1.0-6.0); RBC 4.9 10^6/uL (3.5-6.1); RED CELL DISTRIBUTION WIDTH 13.4 % (11.5-14.5); WHITE BLOOD COUNT 8.4 10^3/uL (4.5-11.0)
[2018-12-05 06:39] LABS: ALB/GLOB RATIO 1.2 (1.1-1.8); ALBUMIN 3.8 g/dL (3.0-4.8); ALT/SGPT 31 U/L (7-56); AST/SGOT 21 U/L (17-59); BLOOD UREA NITROGEN 10 mg/dL (7-21); CALCIUM 9.3 mg/dL (8.4-10.5); GFR NON-AFRICAN AMERICAN > 60
[2018-12-05] MEDS ORDERED: Pantoprazole 40 mg EC Tab PO SCH (07:30)
[2018-12-05] MEDS: Aspirin 325 mg EC Tablets PO SCH (10:54)
[2018-12-05] MEDS: levETIRAcetam 1000mg/100ml NS 100 ML IVPB SCH (10:54)
[2018-12-05 11:59] VITALS: RESP 18; O2SAT 91
--- NOTE | 2018-12-05 13:38 | CP.PCM.DIS ---
<Aidan Noriega - Last Filed: 12/05/18 13:42> Provider - Provider Date of Admission: 12/03/18 20:28 Attending physician: Thiago Danielson MD Primary care physician: Indra Gan MD Consults: 12/03/18 21:55 Neurology Consult Routine Comment: Consulting Provider: Danyell Kovacs Consulting Physician: Danyell Kovacs Reason for Consult: seizures 12/03/18 23:55 Continuous Improvement Manager [Case Management Referral] Routine Comment: Physician Instructions: Reason For Exam: SW eval for d/c planning Reason for Referral: Discharge Planning 12/04/18 17:54 Social Work Referral Routine Comment: op pt, speech therapy as an op jfk geremias 2x's wk Physician Instructions: Reason For Exam: assess 12/04/18 18:41 Inpatient [facility] Core Measures Referral Routine Comment: seizure Physician Instructions: Reason For Exam: assess Nursing Referral for Wound Care Routine Comment: healed pressure wound to sacrum healed scars Physician Instructions: Reason For Exam: assess for prevention Transition In Care/Readmission Reduction Routine Comment: seizure Physician Instructions: Reason For Exam: assess 12/05/18 13:11 Social Work Referral Routine Comment: resume PT Physician Instructions: to restart Monday; 12/07/18 Reason For Exam: home Physical Therapy Time Spent in preparation of Discharge (in minutes): 40 Diagnosis - Discharge Diagnosis (1) Seizure Status: Resolved Hospital Course - Lab Results Lab Results: Micro Results 12/04/18 00:00 Urine Random Urine Culture - Final No Growth (<1,000 CFU/ML) 12/04/18 00:30 Blood Blood Culture - Preliminary NO GROWTH AFTER 24 HOURS 12/04/18 00:15 Blood Blood Culture - Preliminary NO GROWTH AFTER 24 HOURS Most Recent Lab Values WBC 8.4 10^3/uL (4.5-11.0) D 12/05/18 06:00 RBC 4.90 10^6/uL (3.5-6.1) 12/05/18 06:00 Hgb 13.9 g/dL (14.0-18.0) L 12/05/18 06:00 Hct 42.3 % (42.0-52.0) 12/05/18 06:00 MCV 86.3 fl (80.0-105.0) 12/05/18 06:00 MCH 28.4 pg (25.0-35.0) 12/05/18 06:00 MCHC 32.9 g/dl (31.0-37.0) 12/05/18 06:00 RDW 13.4 % (11.5-14.5) 12/05/18 06:00 Plt Count 235 10^3/uL (120.0-450.0) 12/05/18 06:00 MPV 9.9 fl (7.0-11.0) 12/05/18 06:00 Neut % (Auto) 59.4 % (50.0-68.0) 12/05/18 06:00 Lymph % (Auto) 26.8 % (22.0-35.0) 12/05/18 06:00 Potter % (Auto) 11.6 % (1.0-6.0) H 12/05/18 06:00 Eos % (Auto) 2.0 % (1.5-5.0) 12/05/18 06:00 Baso % (Auto) 0.2 % (0.0-3.0) 12/05/18 06:00 Lymph # (Auto) 2.2 (1.2-3.4) 12/05/18 06:00 Potter # (Auto) 1.0 (0.1-0.6) H 12/05/18 06:00 Eos # (Auto) 0.2 (0.0-0.7) 12/05/18 06:00 Baso # (Auto) 0.02 K/mm3 (0.0-2.0) 12/05/18 06:00 Absolute Neuts (auto) 4.97 (1.4-6.5) 12/05/18 06:00 PT 13.9 SECONDS (9.4-12.5) H 12/03/18 18:05 INR 1.25 12/03/18 18:05 APTT 30.6 Seconds (26.9-38.3) 12/03/18 18:05 Sodium 136 mmol/L (132-148) 12/05/18 06:00 Potassium 4.1 mmol/L (3.6-5.0) 12/05/18 06:00 Chloride 100 mmol/L (98-107) 12/05/18 06:00 Carbon Dioxide 27 mmol/L (21-33) 12/05/18 06:00 Anion Gap 12 (10-20) 12/05/18 06:00 BUN 10 mg/dL (7-21) 12/05/18 06:00 Creatinine 0.8 mg/dl (0.8-1.5) 12/05/18 06:00 Est GFR ( Amer) > 60 12/05/18 06:00 Est GFR (Non-Af Amer) > 60 12/05/18 06:00 Random Glucose 85 mg/dL (70-110) 12/05/18 06:00 Calcium 9.3 mg/dL (8.4-10.5) 12/05/18 06:00 Phosphorus 3.6 mg/dL (2.5-4.5) 12/05/18 06:00 Magnesium 2.0 mg/dL (1.7-2.2) 12/05/18 06:00 Total Bilirubin 0.5 mg/dL (0.2-1.3) 12/05/18 06:00 AST 21 U/L (17-59) 12/05/18 06:00 ALT 31 U/L (7-56) 12/05/18 06:00 Alkaline Phosphatase 86 U/L (38-126) 12/05/18 06:00 Total Creatine Kinase 100 U/L (35-230) 12/03/18 18:05 Total Protein 6.9 g/dL (5.8-8.3) 12/05/18 06:00 Albumin 3.8 g/dL (3.0-4.8) 12/05/18 06:00 Globulin 3.1 gm/dL 12/05/18 06:00 Albumin/Globulin Ratio 1.2 (1.1-1.8) 12/05/18 06:00 Procalcitonin < 0.05 NG/ML (0.19-0.49) L 12/04/18 06:14 Urine Color Yellow (YELLOW) 12/04/18 00:00 Urine Appearance Clear (CLEAR) 12/04/18 00:00 Urine pH 8.0 (4.7-8.0) 12/04/18 00:00 Ur Specific [place] 1.020 (1.005-1.035) 12/04/18 00:00 Urine Protein Negative mg/dL (<30 mg/dL) 12/04/18 00:00 Urine Glucose (UA) Negative mg/dL (NEGATIVE) 12/04/18 00:00 Urine Ketones Negative mg/dL (NEGATIVE) 12/04/18 00:00 Urine Blood Large (NEGATIVE) H 12/04/18 00:00 Urine Nitrate Negative (NEGATIVE) 12/04/18 00:00 Urine Bilirubin Negative (NEGATIVE) 12/04/18 00:00 Urine Urobilinogen 0.2 E.U./dL (<1 E.U./dL) 12/04/18 00:00 Ur Leukocyte Esterase Negative Jose Juan/uL (NEGATIVE) 12/04/18 00:00 Urine RBC 10 - 15 /hpf (0-2) H 12/04/18 00:00 Urine WBC 0 - 2 /hpf (0-6) 12/04/18 00:00 Ur Epithelial Cells 0 - 2 /hpf (0-5) 12/04/18 00:00 Urine Bacteria Rare /hpf (NONE) 12/04/18 00:00 Urine Opiates Screen Negative (NEGATIVE) 12/04/18 00:00 Urine Methadone Screen Negative (NEGATIVE) 12/04/18 00:00 Ur Barbiturates Screen Negative (NEGATIVE) 12/04/18 00:00 Ur Phencyclidine Scrn Negative (NEGATIVE) 12/04/18 00:00 Ur Amphetamines Screen Negative (NEGATIVE) 12/04/18 00:00 U Benzodiazepines Scrn Negative (NEGATIVE) 12/04/18 00:00 U Oth Cocaine Metabols Negative (NEGATIVE) 12/04/18 00:00 U Cannabinoids Screen Negative (NEGATIVE) 12/04/18 00:00 - Hospital Course Hospital Course: Aidan Noriega DO, PGY-1 Hospitalist Discharge Summary for Dr. 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 Seizures were witnessed while patient was in wheelchair by and were described as tonic- clonic with tongue biting. Patient's and mother subsequently presented with him to ED for evaluation. Hospitalization course: While admitted, patient was given his usual dose of Keppra as an IVPB. Neurology was urgently consulted and recommended additional seizure prophylaxis by adding valproic acid IVPB 1 g loading dose then 500 mg IVPB BID. Since arrival to ED, patient was placed on seizure precautions, q4h neuro checks, and aspiration precautions. He was evaluated by speech therapy who recommended soft diet without use of straws. His primary neurosurgeon at [place], Dr. Victor, was contacted by neurology to confirm the plan. Patient was monitored for approximately 36 hours without additional seizures. Labs were remarkable for leukocytosis initially which has resolved and was likely reactionary. He was also noted to have 10-15 RBC and large blood on UA. He denies symptoms of dysuria or frequency. He was encouraged to repeat UA as an outpatient. Other labs, including CK, were unremarkable. Discharge plan was discussed with neurology, Dr. Kovacs, who agrees to f/u on an outpatient basis for weaning patient off Keppra and continuing depakote. Discharge plan was discussed with patient and family in detail. All questions were answered. Patient seen, examined, and discharge plan discussed with my attending Dr. Erum Noriega, D.O. IM Resident PGY-1 Discharge Exam - Head Exam Head Exam: ATRAUMATIC, NORMOCEPHALIC - Eye Exam Eye Exam: EOMI, PERRL - ENT Exam ENT Exam: Mucous Membranes Moist - Neck Exam Neck exam: Full Rom, Normal Inspection - Respiratory Exam Respiratory Exam: Clear to PA & Lateral, NORMAL BREATHING PATTERN, UNREMARKABLE. absent: Accessory Muscle Use, Rales, Rhonchi, Wheezes, Respiratory Distress - Cardiovascular Exam Cardiovascular Exam: REGULAR RHYTHM, RRR, +S1, +S2. absent: Diastolic murmur, Gallop, Rubs, Systolic Murmur - GI/Abdominal Exam GI & Abdominal Exam: Normal Bowel Sounds, Soft, Unremarkable. absent: Tenderness - Extremities Exam Extremities exam: full ROM, normal inspection - Back Exam Back exam: NORMAL INSPECTION - Neurological Exam Neurological exam: Alert, CN II-XII Intact, Oriented x3 Additional comments: able to speak only quietly but otherwise alert and responsive - Psychiatric Exam Psychiatric exam: Normal Affect, Normal Mood - Skin Skin Exam: Dry, Intact, Warm Discharge Plan - Discharge Medications Prescriptions: Divalproex [Depakote ER] 500 mg PO BID #28 ter Levetiracetam [Keppra] 750 mg PO BID #28 tablet - Follow Up Plan Condition: FAIR Disposition: HOME/ ROUTINE Instructions: Soft Diet, Seizures Additional Instructions: Follow up with primary care doctor in 3-5 days Follow up with neurology, Dr. Kovacs, within 1 week. We have started you on a new seizure medicine, Depakote, please take 500 mg twice a day. Please continue to take the other seizure medicine, Keppra, until you see Dr. Kovacs. If any of your symptoms return or worsen, please return to nearest ED. Patient may resume Physical Therapy on December 07 - after recent hospitalization. Diet: Regular - soft diet; NO STRAWS Patient's significant other state that the patient is up to date with regards to the flu and the pneumococcal vaccines. Referrals: Indra Gan MD [Primary Care Provider] - Follow up with primary Danyell Kovacs MD [Staff Provider] - <Thiago Danielson - Last Filed: 12/05/18 14:52> Provider - Provider Date of Admission: 12/03/18 20:28 Attending physician: Thiago Danielson MD Primary care physician: Indra Gan MD Consults: 12/03/18 21:55 Neurology Consult Routine Comment: Consulting Provider: Danyell Kovacs Consulting Physician: Danyell Kovacs Reason for Consult: seizures 12/03/18 23:55 Continuous Improvement Manager [Case Management Referral] Routine Comment: Physician Instructions: Reason For Exam: SW eval for d/c planning Reason for Referral: Discharge Planning 12/04/18 17:54 Social Work Referral Routine Comment: op pt, speech therapy as an op jfk geremias 2x's wk Physician Instructions: Reason For Exam: assess 12/04/18 18:41 Inpatient [facility] Core Measures Referral Routine Comment: seizure Physician Instructions: Reason For Exam: assess Nursing Referral for Wound Care Routine Comment: healed pressure wound to sacrum healed scars Physician Instructions: Reason For Exam: assess for prevention Transition In Care/Readmission Reduction Routine Comment: seizure Physician Instructions: Reason For Exam: assess 12/05/18 13:11 Social Work Referral Routine Comment: resume PT Physician Instructions: to restart Monday; 12/07/18 Reason For Exam: home Physical Therapy Hospital Course - Lab Results Lab Results: Micro Results 12/04/18 00:00 Urine Random Urine Culture - Final No Growth (<1,000 CFU/ML) 12/04/18 00:30 Blood Blood Culture - Preliminary NO GROWTH AFTER 24 HOURS 12/04/18 00:15 Blood Blood Culture - Preliminary NO GROWTH AFTER 24 HOURS Most Recent Lab Values WBC 8.4 10^3/uL (4.5-11.0) D 12/05/18 06:00 RBC 4.90 10^6/uL (3.5-6.1) 12/05/18 06:00 Hgb 13.9 g/dL (14.0-18.0) L 12/05/18 06:00 Hct 42.3 % (42.0-52.0) 12/05/18 06:00 MCV 86.3 fl (80.0-105.0) 12/05/18 06:00 MCH 28.4 pg (25.0-35.0) 12/05/18 06:00 MCHC 32.9 g/dl (31.0-37.0) 12/05/18 06:00 RDW 13.4 % (11.5-14.5) 12/05/18 06:00 Plt Count 235 10^3/uL (120.0-450.0) 12/05/18 06:00 MPV 9.9 fl (7.0-11.0) 12/05/18 06:00 Neut % (Auto) 59.4 % (50.0-68.0) 12/05/18 06:00 Lymph % (Auto) 26.8 % (22.0-35.0) 12/05/18 06:00 Potter % (Auto) 11.6 % (1.0-6.0) H 12/05/18 06:00 Eos % (Auto) 2.0 % (1.5-5.0) 12/05/18 06:00 Baso % (Auto) 0.2 % (0.0-3.0) 12/05/18 06:00 Lymph # (Auto) 2.2 (1.2-3.4) 12/05/18 06:00 Potter # (Auto) 1.0 (0.1-0.6) H 12/05/18 06:00 Eos # (Auto) 0.2 (0.0-0.7) 12/05/18 06:00 Baso # (Auto) 0.02 K/mm3 (0.0-2.0) 12/05/18 06:00 Absolute Neuts (auto) 4.97 (1.4-6.5) 12/05/18 06:00 PT 13.9 SECONDS (9.4-12.5) H 12/03/18 18:05 INR 1.25 12/03/18 18:05 APTT 30.6 Seconds (26.9-38.3) 12/03/18 18:05 Sodium 136 mmol/L (132-148) 12/05/18 06:00 Potassium 4.1 mmol/L (3.6-5.0) 12/05/18 06:00 Chloride 100 mmol/L (98-107) 12/05/18 06:00 Carbon Dioxide 27 mmol/L (21-33) 12/05/18 06:00 Anion Gap 12 (10-20) 12/05/18 06:00 BUN 10 mg/dL (7-21) 12/05/18 06:00 Creatinine 0.8 mg/dl (0.8-1.5) 12/05/18 06:00 Est GFR ( Amer) > 60 12/05/18 06:00 Est GFR (Non-Af Amer) > 60 12/05/18 06:00 Random Glucose 85 mg/dL (70-110) 12/05/18 06:00 Calcium 9.3 mg/dL (8.4-10.5) 12/05/18 06:00 Phosphorus 3.6 mg/dL (2.5-4.5) 12/05/18 06:00 Magnesium 2.0 mg/dL (1.7-2.2) 12/05/18 06:00 Total Bilirubin 0.5 mg/dL (0.2-1.3) 12/05/18 06:00 AST 21 U/L (17-59) 12/05/18 06:00 ALT 31 U/L (7-56) 12/05/18 06:00 Alkaline Phosphatase 86 U/L (38-126) 12/05/18 06:00 Total Creatine Kinase 100 U/L (35-230) 12/03/18 18:05 Total Protein 6.9 g/dL (5.8-8.3) 12/05/18 06:00 Albumin 3.8 g/dL (3.0-4.8) 12/05/18 06:00 Globulin 3.1 gm/dL 12/05/18 06:00 Albumin/Globulin Ratio 1.2 (1.1-1.8) 12/05/18 06:00 Procalcitonin < 0.05 NG/ML (0.19-0.49) L 12/04/18 06:14 Urine Color Yellow (YELLOW) 12/04/18 00:00 Urine Appearance Clear (CLEAR) 12/04/18 00:00 Urine pH 8.0 (4.7-8.0) 12/04/18 00:00 Ur Specific [place] 1.020 (1.005-1.035) 12/04/18 00:00 Urine Protein Negative mg/dL (<30 mg/dL) 12/04/18 00:00 Urine Glucose (UA) Negative mg/dL (NEGATIVE) 12/04/18 00:00 Urine Ketones Negative mg/dL (NEGATIVE) 12/04/18 00:00 Urine Blood Large (NEGATIVE) H 12/04/18 00:00 Urine Nitrate Negative (NEGATIVE) 12/04/18 00:00 Urine Bilirubin Negative (NEGATIVE) 12/04/18 00:00 Urine Urobilinogen 0.2 E.U./dL (<1 E.U./dL) 12/04/18 00:00 Ur Leukocyte Esterase Negative Jose Juan/uL (NEGATIVE) 12/04/18 00:00 Urine RBC 10 - 15 /hpf (0-2) H 12/04/18 00:00 Urine WBC 0 - 2 /hpf (0-6) 12/04/18 00:00 Ur Epithelial Cells 0 - 2 /hpf (0-5) 12/04/18 00:00 Urine Bacteria Rare /hpf (NONE) 12/04/18 00:00 Urine Opiates Screen Negative (NEGATIVE) 12/04/18 00:00 Urine Methadone Screen Negative (NEGATIVE) 12/04/18 00:00 Ur Barbiturates Screen Negative (NEGATIVE) 12/04/18 00:00 Ur Phencyclidine Scrn Negative (NEGATIVE) 12/04/18 00:00 Ur Amphetamines Screen Negative (NEGATIVE) 12/04/18 00:00 U Benzodiazepines Scrn Negative (NEGATIVE) 12/04/18 00:00 U Oth Cocaine Metabols Negative (NEGATIVE) 12/04/18 00:00 U Cannabinoids Screen Negative (NEGATIVE) 12/04/18 00:00 Attending/Attestation - Attestation I have personally seen and examined this patient.: Yes I have fully participated in the care of the patient.: Yes I have reviewed all pertinent clinical information, including history, physical exam and plan: Yes Notes (Text): 12/05/18 14:47 Attending note; Patient seen and examined with resident. Patient's by the bedside. Patient is alert and awake. Able to say few words. denies any chest pain, shortness of breath. Denies any fever Any abdominal pain, nausea, vomiting. Denies any urinary symptoms. Patient is a 48 year old male with past medical history of subarachnoid hemorrhage, craniotomy, shunt placement ,seizures, HTN, CVA, vocal polyps presenting with chief complaint of seizures . Patient has Tongue bite. Patient was admitted and monitored closely. Patient was started on Depakote. Continue with home Keppra. Neurology evaluation appreciated . Patient will be discharged home today. Leukocytosis resolved. Patient is afebrile nontoxic. Pro-calcitonin is negative .UA showed positive RBC due to straight cath. Advised outpatient follow-up. Currently no symptoms. Medication delivered to the bedside. Will follow up with PMD Dr. Pat. Follow-up with neurology Dr. Kovacs in 1 week. Patient is wheelchair-bound. Patient can continue outpatient physical therapy. 12/05/18 14:52
--- NOTE | 2018-12-05 15:40 | CP.PCM.PN ---
Subjective - Date & Time of Evaluation Date of Evaluation: 12/05/18 Time of Evaluation: 10:37 - Subjective Subjective: PGY-1 Neurology Progress note for Dr. Cerna Patient seen and examined at bedside. is at bedside, she states that he has not had any seizure episodes since admission. Patient denies having any headaches, dizziness, or any other complaints at this time. Objective - Vital Signs/Intake and Output Vital Signs (last 24 hours): Temp Pulse Resp BP Pulse Ox 98.7 F 83 18 119/84 91 L 12/05/18 12:00 12/05/18 12:00 12/05/18 12:00 12/05/18 12:00 12/05/18 09:00 Intake and Output: 12/05/18 12/05/18 06:59 18:59 Intake Total 350 120 Balance 350 120 - Medications Medications: Current Medications Amlodipine Besylate (Norvasc) 5 mg PO DAILY [facility] Last Admin: 12/05/18 10:54 Dose: 5 mg Aspirin (Ecotrin) 325 mg PO DAILY [facility] Last Admin: 12/05/18 10:54 Dose: 325 mg Levetiracetam (Keppra 1000mg/100ml Ns) 100 mls @ 200 mls/hr IVPB Q12 [facility] Last Admin: 12/05/18 10:54 Dose: 200 mls/hr Valproate Sodium 500 mg/ (Sodium Chloride) 105 mls @ 100 mls/hr IVPB Q12H [facility] Last Admin: 12/05/18 05:15 Dose: 100 mls/hr Lisinopril (Zestril) 2.5 mg PO DAILY [facility] Last Admin: 12/05/18 10:54 Dose: 2.5 mg Lorazepam (Ativan) 2 mg IVP Q2H PRN; Protocol PRN Reason: Seizure activity Non-Formulary Medication (Amantadine [Symmetrel]) 5 ml PO DAILY [facility] Pantoprazole Sodium (Protonix Ec Tab) 40 mg PO ACB [facility] Last Admin: 12/05/18 08:30 Dose: 40 mg - Labs Labs: 12/05/18 06:00 12/05/18 06:00 PT 13.9 SECONDS (9.4-12.5) H 12/03/18 18:05 INR 1.25 12/03/18 18:05 APTT 30.6 Seconds (26.9-38.3) 12/03/18 18:05 - Additional Findings Additional findings: - Constitutional Appears: Non-toxic, No Acute Distress - Head Exam Head Exam: ATRAUMATIC, NORMOCEPHALIC - Eye Exam Eye Exam: EOMI, Normal appearance, PERRL - ENT Exam ENT Exam: Mucous Membranes Moist - Respiratory Exam Respiratory Exam: Clear to Auscultation Bilateral, NORMAL BREATHING PATTERN. absent: Rales, Rhonchi, Wheezes - Cardiovascular Exam Cardiovascular Exam: Tachycardia, +S1, +S2. absent: Systolic Murmur - GI/Abdominal Exam GI & Abdominal Exam: Soft. absent: Distended, Firm, Guarding, Rebound, Rigid, Tenderness - Extremities Exam Extremities exam: Positive for: normal capillary refill, pedal pulses present. Negative for: calf tenderness, pedal edema - Neurological Exam Neurological exam: Alert, CN II-XII Intact, Oriented x3 Neuro motor strength exam: Left Upper Extremity: 5, Right Upper Extremity: 4, Left Lower Extremity: 5, Right Lower Extremity: 4 Additional comments: right sided contractures - Skin Skin Exam: Dry, Intact, Warm Assessment and Plan - Assessment and Plan (Free Text) Assessment: Patient is a 48 year old male with past medical history of subarachnoid hemorrhage s/p ventriculostomy, seizures, HTN, CVA, and vocal polyps admitted for workup and management of seizures. Plan: - Continue to take home medication Keppra 750mg BID - Start taking Depakote 500mg BID - Continue to work with PT/ST/OT - Follow up with Dr. Cerna in her office in 2-4 weeks - Further recommendations as per Dr. Cerna Disposition: Cleared for discharge from neurology's standpoint. Patient seen and case discussed with attending, Dr. Nehemiah Edouard, PGY-1
[2018-12-05] MEDS ORDERED: Divalproex 250 mg DR (BID formulation) PO STA (18:16)
[2018-12-05 18:18] VITALS: BP 112/81; PULSE 84; TEMP 98.4
== END 2018-12-05 21:47 | disposition home or self-care (01) | DRG 890 ==
LOC: ED 17:34 → ERH 20:28 → 2RNO 12-04 15:26
PROVIDERS: ADMIT Internal Medicine; ATTEND Internal Medicine
DX: R56.9 Unspecified convulsions (principal); D72.829 Elevated white blood cell count, unspecified; I10 Essential (primary) hypertension; K21.9 Gastro-esophageal reflux disease without esophagitis; I69.320 Aphasia following cerebral infarction; I69.351 Hemiplegia and hemiparesis following cerebral infarction affecting right dominant side; Z86.74 Personal history of sudden cardiac arrest; Z87.01 Personal history of pneumonia (recurrent); Z90.49 Acquired absence of other specified parts of digestive tract; Z98.2 Presence of cerebrospinal fluid drainage device; Z99.3 Dependence on wheelchair